=== PATIENT | female | born 1950 | race Caucasian/White ===

== ENCOUNTER 2019-01-19 10:30 | Inpatient (IN) | payer MEDICARE, MEDICAID ==
[~2019-01-19] VITALS: Ht 165.1 cm; Wt 100.6 kg
[~2019-01-19 10:30] MED LIST: LIDO700A20 TD; OXYcodone/APAP 5/325MG PO; PARO40TA61 PO; RISP1TAB3 PO; TRAM50TA2 PO
--- NOTE | 2019-01-19 10:39 | NUR ---
PT FROM [facility], BROUGHT HERE VIA [facility] FOR ABNORMAL LABS. PT WITH ELEVATED WBC AND NUETROPHIL COUNT. PT DENIES FEVERS, URINARY SYMPTOMS, PAIN OF ANY KIND, SOB. PT TO BP, CONT PULSE OX
[2019-01-19] MEDS ORDERED: SODIUM CHLORIDE FLUSH 10ML SYR IVF ONE (11:00)
[2019-01-19 11:22] LABS: BASOPHILS # (AUTO) 0.07 x10^3/uL (0-0.1); BASOPHILS % (AUTO) 1 % (0-1); EOSINOPHILS # (AUTO) 0.08 x10^3/uL (0-0.4); EOSINOPHILS % (AUTO) 1 % (1-7); LYMPHOCYTES # (AUTO) 1.62 x10^3/uL (1-3.4); LYMPHOCYTES % (AUTO) 13 % (22-44); MD NO; MEAN CORPUSCULAR HEMOGLOBIN 30.7 pg (27.0-34.8); MEAN CORPUSCULAR HGB CONC 32.6 g/dL (32.4-35.8); MEAN CORPUSCULAR VOLUME 94.3 fL (80-100); MEAN PLATELET VOLUME 8.4 fL (7.4-10.4); MONOCYTES # (AUTO) 1.23 x10^3/uL (0.2-0.8); MONOCYTES % (AUTO) 10 % (2-9); NEUTROPHILS # (AUTO) 9.49 x10^3/uL (1.8-6.8); NEUTROPHILS % (AUTO) 76 % (42-75); PLATELET COUNT 263 x10^3/uL (130-400); RED BLOOD COUNT 4.29 x10^6/uL (3.82-5.3); RED CELL DISTRIBUTION WIDTH 13.6 % (9.6-15.2)
--- NOTE | 2019-01-19 11:22 | NUR ---
PIV INITIATED, LABS DRAWN AND SENT. PT PLACED ON CARD MONITOR WELL BP, PULSE OX PER MD ORDER. BC DRAWN BY LAB. CHEST DX COMPLETED, NAD NOTED, NO OTHER NEEDS
[2019-01-19 11:38] LABS: CHLORIDE 110 mmol/L (98-107)
[2019-01-19 11:54] LABS: ALANINE AMINOTRANSFERASE 47 U/L (12-78); ALBUMIN 3.2 g/dL (3.4-5.0); ALKALINE PHOSPHATASE 150 U/L (45-117); ANION GAP 9 mmol/L (5-15); BILIRUBIN,TOTAL 0.7 mg/dL (0.2-1.0); CALCIUM 9.5 mg/dL (8.5-10.1); CREATININE 0.83 mg/dL (0.55-1.02); TOTAL PROTEIN 8.2 g/dL (6.4-8.2)
[2019-01-19 12:07] LABS: TROPONIN I 0.824 ng/mL (0.000-0.045)
--- NOTE | 2019-01-19 12:18 | NUR ---
PT PROVIDED WITH WARM BLANKET, DENIES OTHER NEEDS AT THIS TIME. LAB CALLED WITH TROP LEVER OF 0.824, PT DENIES CP. PROVIDER INFORMED
[2019-01-19] MEDS ORDERED: ASPIRIN 81 MG TABLET CHEW ONE (12:36)
--- NOTE | 2019-01-19 12:47 | NUR ---
TASK RN COVERING MEAL BREAK. VSS, CALL LIGHT WITHIN REACH.
[2019-01-19] MEDS ORDERED: ASPIRIN 81 MG TABLET CHEW PO ONE (13:00)
--- NOTE | 2019-01-19 13:40 | NUR ---
REPORT TO ERIKA BANG, AWAITING TRANSPORT
--- NOTE | 2019-01-19 14:34 | NUR ---
PT BACK FROM IMAGING. ADMITTING MD IN TO [facility]
[2019-01-19] MEDS ORDERED: morphine SULFATE 10 MG/ML, 1ML IVPush PRN (15:00)
[2019-01-19] MEDS ORDERED: FUROSEMIDE 40 MG/4 ML IV ONE (15:00)
[2019-01-19] MEDS ORDERED: ONDANSETRON 2MG/ML, 2ML IVPush PRN (15:00)
[2019-01-19] MEDS ORDERED: ONDANSETRON ODT 4 MG PO PRN (15:00)
[2019-01-19] MEDS ORDERED: ACETAMINOPHEN 325 MG TABLET PO PRN (15:00)
[2019-01-19 15:24] VITALS: BP 126/84
[2019-01-19] MEDS: ENOXAPARIN 100 MG/ML SQ SCH (15:30)
[2019-01-19 16:05] LABS: HCT (SEDRATE) 36.6 % (34.6-47.8)
[2019-01-19 16:20] LABS: TROPONIN I 0.764 ng/mL (0.000-0.045)
[2019-01-19] MEDS: POTASSIUM CHLORIDE 20 MEQ TAB.ER.PRT PO SCH (17:15)
[2019-01-19] MEDS: PAROXETINE 20 MG TABLET PO SCH (21:00)
[2019-01-19] MEDS: RISPERIDONE 1 MG TABLET PO SCH (21:00)
[2019-01-19 23:56] LABS: TROPONIN I 0.583 ng/mL (0.000-0.045)
[2019-01-20] MEDS: ENOXAPARIN 100 MG/ML SQ SCH (03:33)
[2019-01-20 03:59] VITALS: BP 108/62
[2019-01-20 04:23] VITALS: BP 138/73
[2019-01-20 04:40] LABS: BASOPHILS # (AUTO) 0.09 x10^3/uL (0-0.1); BASOPHILS % (AUTO) 1 % (0-1); EOSINOPHILS # (AUTO) 0.17 x10^3/uL (0-0.4); EOSINOPHILS % (AUTO) 2 % (1-7); LYMPHOCYTES # (AUTO) 1.45 x10^3/uL (1-3.4); LYMPHOCYTES % (AUTO) 15 % (22-44); MD NO; MEAN CORPUSCULAR HEMOGLOBIN 30.5 pg (27.0-34.8); MEAN CORPUSCULAR HGB CONC 32.7 g/dL (32.4-35.8); MEAN CORPUSCULAR VOLUME 93.2 fL (80-100); MEAN PLATELET VOLUME 8.8 fL (7.4-10.4); MONOCYTES # (AUTO) 0.77 x10^3/uL (0.2-0.8); MONOCYTES % (AUTO) 8 % (2-9); NEUTROPHILS % (AUTO) 75 % (42-75); PLATELET COUNT 256 x10^3/uL (130-400); RED BLOOD COUNT 3.78 x10^6/uL (3.82-5.3); RED CELL DISTRIBUTION WIDTH 13.5 % (9.6-15.2)
[2019-01-20 04:43] LABS: ALBUMIN 2.6 g/dL (3.4-5.0); ANION GAP 7 mmol/L (5-15); CALCIUM 8.6 mg/dL (8.5-10.1); CHLORIDE 111 mmol/L (98-107)
[2019-01-20 04:46] LABS: ALANINE AMINOTRANSFERASE 36 U/L (12-78); ALKALINE PHOSPHATASE 116 U/L (45-117); BILIRUBIN,TOTAL 0.5 mg/dL (0.2-1.0); CREATININE 0.75 mg/dL (0.55-1.02); TOTAL PROTEIN 6.5 g/dL (6.4-8.2)
[2019-01-20 08:43] VITALS: BP 124/83
[2019-01-20] MEDS ORDERED: OMNIPAQUE 350 MG/ML, 100ML BOTTLE ONE (08:51)
[2019-01-20] MEDS ORDERED: HEPARIN 5,000 UNITS/ML, 1ML ONE (09:00)
[2019-01-20] MEDS ORDERED: HEPARIN 25,000 UNITS/500ML PMX 500 ML ONE (09:00)
[2019-01-20] MEDS: POTASSIUM CHLORIDE 20 MEQ TAB.ER.PRT PO SCH ×2 (09:20→16:50)
[2019-01-20] MEDS: HEPARIN 25,000 UNITS/500ML PMX 500 ML IV PRN (09:28)
[2019-01-20] MEDS ORDERED: HEPARIN 5,000 UNITS/ML, 1ML IV ONE (09:30)
[2019-01-20 14:14] VITALS: BP 108/76
[2019-01-20 16:48] LABS: MICROSCOPIC AUTO
[2019-01-20 16:59] LABS: CULTURE INDICATED? YES
[2019-01-20] MEDS: PAROXETINE 20 MG TABLET PO SCH (20:42)
[2019-01-20] MEDS: RISPERIDONE 1 MG TABLET PO SCH (20:42)
[2019-01-20 21:57] VITALS: BP 115/76
[2019-01-20] MEDS: HEPARIN 5,000 UNITS/ML, 1ML IV PRN (23:14)
[2019-01-21 03:28] VITALS: BP 118/81
[2019-01-21 05:23] LABS: BASOPHILS # (AUTO) 0.07 x10^3/uL (0-0.1); BASOPHILS % (AUTO) 1 % (0-1); EOSINOPHILS # (AUTO) 0.19 x10^3/uL (0-0.4); EOSINOPHILS % (AUTO) 2 % (1-7); LYMPHOCYTES # (AUTO) 1.46 x10^3/uL (1-3.4); LYMPHOCYTES % (AUTO) 16 % (22-44); MD NO; MEAN CORPUSCULAR HEMOGLOBIN 30.5 pg (27.0-34.8); MEAN CORPUSCULAR HGB CONC 32.7 g/dL (32.4-35.8); MEAN CORPUSCULAR VOLUME 93.3 fL (80-100); MEAN PLATELET VOLUME 8.9 fL (7.4-10.4); MONOCYTES # (AUTO) 0.67 x10^3/uL (0.2-0.8); MONOCYTES % (AUTO) 7 % (2-9); NEUTROPHILS # (AUTO) 6.64 x10^3/uL (1.8-6.8); NEUTROPHILS % (AUTO) 74 % (42-75); PLATELET COUNT 289 x10^3/uL (130-400); RED BLOOD COUNT 3.75 x10^6/uL (3.82-5.3); RED CELL DISTRIBUTION WIDTH 13.5 % (9.6-15.2)
[2019-01-21] MEDS: HEPARIN 5,000 UNITS/ML, 1ML IV PRN ×3 (05:42→20:22)
[2019-01-21 06:34] VITALS: BP 127/75
[2019-01-21] MEDS: POLYETHYLENE GLYCOL 17 GM PACKET PO PRN (08:20)
[2019-01-21] MEDS: POTASSIUM CHLORIDE 20 MEQ TAB.ER.PRT PO SCH ×2 (08:21→17:00)
[2019-01-21 12:09] VITALS: BP 114/76
[2019-01-21] MEDS ORDERED: LIDOCAINE 1%, 10ML ONE (13:03)
[2019-01-21] MEDS: HEPARIN 25,000 UNITS/500ML PMX 500 ML IV PRN (13:57)
[2019-01-21 18:35] VITALS: BP 117/78
[2019-01-21] MEDS: PAROXETINE 20 MG TABLET PO SCH (20:21)
[2019-01-21] MEDS: RISPERIDONE 1 MG TABLET PO SCH (20:22)
[2019-01-22 00:42] VITALS: BP 127/80
[2019-01-22 02:25] LABS: BASOPHILS # (AUTO) 0.06 x10^3/uL (0-0.1); BASOPHILS % (AUTO) 1 % (0-1); EOSINOPHILS # (AUTO) 0.26 x10^3/uL (0-0.4); EOSINOPHILS % (AUTO) 3 % (1-7); LYMPHOCYTES % (AUTO) 16 % (22-44); MD NO; MEAN CORPUSCULAR HEMOGLOBIN 29.8 pg (27.0-34.8); MEAN CORPUSCULAR HGB CONC 32.2 g/dL (32.4-35.8); MEAN CORPUSCULAR VOLUME 92.6 fL (80-100); MEAN PLATELET VOLUME 8.1 fL (7.4-10.4); MONOCYTES # (AUTO) 0.68 x10^3/uL (0.2-0.8); MONOCYTES % (AUTO) 8 % (2-9); NEUTROPHILS % (AUTO) 73 % (42-75); PLATELET COUNT 320 x10^3/uL (130-400); RED BLOOD COUNT 3.96 x10^6/uL (3.82-5.3); RED CELL DISTRIBUTION WIDTH 13.3 % (9.6-15.2)
[2019-01-22 02:37] LABS: ANION GAP 5 mmol/L (5-15); CALCIUM 8.9 mg/dL (8.5-10.1); CHLORIDE 112 mmol/L (98-107); CREATININE 0.64 mg/dL (0.55-1.02)
[2019-01-22] MEDS: HEPARIN 5,000 UNITS/ML, 1ML IV PRN (03:02)
[2019-01-22 06:59] VITALS: BP 129/81
[2019-01-22] MEDS: HEPARIN 25,000 UNITS/500ML PMX 500 ML IV PRN (09:37)
[2019-01-22 14:44] VITALS: BP 115/77
[2019-01-22 15:10] LABS: MICROSCOPIC NOT IND
[2019-01-22 15:12] LABS: CULTURE INDICATED? NO
[2019-01-22 19:28] VITALS: BP 116/73
[2019-01-22] MEDS: PAROXETINE 20 MG TABLET PO SCH (21:11)
[2019-01-22] MEDS: RISPERIDONE 1 MG TABLET PO SCH (21:11)
[2019-01-23 01:02] VITALS: BP 89/60
[2019-01-23 01:10] VITALS: BP 104/68
[2019-01-23 01:12] VITALS: BP 111/70
[2019-01-23] MEDS: HEPARIN 25,000 UNITS/500ML PMX 500 ML IV PRN (03:34)
[2019-01-23] MEDS: HEPARIN 5,000 UNITS/ML, 1ML IV PRN (05:46)
[2019-01-23 07:46] VITALS: BP 140/92
[2019-01-23] MEDS: POLYETHYLENE GLYCOL 17 GM PACKET PO PRN (08:39)
[2019-01-23] MEDS: ENOXAPARIN 100 MG/ML SQ SCH ×2 (08:39→20:43)
[2019-01-23 15:00] VITALS: BP 100/66
[2019-01-23 20:13] VITALS: BP 110/72
[2019-01-23] MEDS: PAROXETINE 20 MG TABLET PO SCH (20:16)
[2019-01-23] MEDS: DOCUSATE 100 MG CAPSULE PO PRN (20:16)
[2019-01-23] MEDS: RISPERIDONE 1 MG TABLET PO SCH (20:16)
[2019-01-24 01:24] VITALS: BP 124/74
[2019-01-24 06:35] VITALS: BP 123/84
[2019-01-24 07:30] LABS: BASOPHILS # (AUTO) 0.06 x10^3/uL (0-0.1); BASOPHILS % (AUTO) 1 % (0-1); EOSINOPHILS # (AUTO) 0.39 x10^3/uL (0-0.4); EOSINOPHILS % (AUTO) 5 % (1-7); LYMPHOCYTES # (AUTO) 1.37 x10^3/uL (1-3.4); LYMPHOCYTES % (AUTO) 17 % (22-44); MD NO; MEAN CORPUSCULAR HEMOGLOBIN 29.9 pg (27.0-34.8); MEAN CORPUSCULAR HGB CONC 32.9 g/dL (32.4-35.8); MEAN CORPUSCULAR VOLUME 91.1 fL (80-100); MEAN PLATELET VOLUME 7.4 fL (7.4-10.4); MONOCYTES # (AUTO) 0.62 x10^3/uL (0.2-0.8); MONOCYTES % (AUTO) 8 % (2-9); NEUTROPHILS # (AUTO) 5.69 x10^3/uL (1.8-6.8); NEUTROPHILS % (AUTO) 70 % (42-75); PLATELET COUNT 330 x10^3/uL (130-400); RED BLOOD COUNT 4.13 x10^6/uL (3.82-5.3); RED CELL DISTRIBUTION WIDTH 13.5 % (9.6-15.2)
[2019-01-24] MEDS: POLYETHYLENE GLYCOL 17 GM PACKET PO PRN (08:17)
[2019-01-24] MEDS: ENOXAPARIN 100 MG/ML SQ SCH ×2 (08:17→21:06)
[2019-01-24] MEDS: DOCUSATE 100 MG CAPSULE PO PRN ×2 (08:18→22:18)
[2019-01-24] MEDS ORDERED: BISACODYL 10 MG SUPP PR PRN (09:00)
[2019-01-24 09:46] LABS: ANION GAP 5 mmol/L (5-15); CHLORIDE 107 mmol/L (98-107); CREATININE 0.78 mg/dL (0.55-1.02)
[2019-01-24 14:49] VITALS: BP 100/67
[2019-01-24 19:29] VITALS: BP 112/74
[2019-01-24] MEDS: RISPERIDONE 1 MG TABLET PO SCH (21:06)
[2019-01-24] MEDS: PAROXETINE 20 MG TABLET PO SCH (21:07)
[2019-01-25 00:29] VITALS: BP 107/69
[2019-01-25] MEDS ORDERED: APIX5TAB PO (07:47)
[2019-01-25 08:10] VITALS: BP 123/74
[2019-01-25] MEDS ORDERED: APIXABAN 5 MG TABLET PO SCH (09:00)
[2019-01-25 12:11] VITALS: BP 120/73
== END 2019-01-25 13:20 | DRG 299 ==
LOC: ED 13:21 → EDIP 13:45 → 5SO 15:04
PROVIDERS: ADMIT Family Medicine; ATTEND Internal Medicine
PROC: 0S9B3ZZ Drainage of Left Hip Joint, Percutaneous Approach (ICD-10-PCS; 2019-01-19)
PROC: 0T9B70Z Drainage of Bladder with Drainage Device, Via Natural or Artificial Opening (ICD-10-PCS; principal; 2019-01-22)
DX: I82.412 Acute embolism and thrombosis of left femoral vein (principal); I26.99 Other pulmonary embolism without acute cor pulmonale; J96.01 Acute respiratory failure with hypoxia; M00.9 Pyogenic arthritis, unspecified; E87.2 Acidosis; I47.2 Ventricular tachycardia; I82.432 Acute embolism and thrombosis of left popliteal vein; I50.9 Heart failure, unspecified; Z88.2 Allergy status to sulfonamides; F32.9 Major depressive disorder, single episode, unspecified; I07.1 Rheumatic tricuspid insufficiency; I27.20 Pulmonary hypertension, unspecified; M16.12 Unilateral primary osteoarthritis, left hip; Z82.3 Family history of stroke
CPT/HCPCS: 36415; 71045; 71275; 77002; 80048; 80053; 81001; 81003; 83605; 83735; 83880; 84100; 84145; 84484; 85025; 85520; 85651; 85730; 86140; 87070; 87086; 87205; 89051; 93005; 93306; 96374; 99285; G0378; J1644; J1650; J1940; Q9967